=== PATIENT | female | born 1960 | race African-American/Black ===

== ENCOUNTER 2020-09-30 20:08 | Emergency (ER) | payer MEDICAID ==
[~2020-09-30] VITALS: Ht 149.9 cm; Wt 95.0 kg
[~2020-09-30 20:08] MED LIST: ADV50100 IH; ALBU18HF2 IH; ALBU8HFA PO; AMLO5TAB4 PO; FAMO40TA73 PO; NEBU1KIT17; QUET-1 PO; SPIIN INH; [UNRECOGNIZED DRUG - OTHER] PO
[2020-09-30] MEDS ORDERED: ibuprofen tablet 400 MG TABLET PO ONE (21:15)
[2020-09-30] MEDS ORDERED: acetaminophen 325mg tablet PO ONE (21:15)
[2020-09-30 21:50] VITALS: BP 134/60
[2020-10-02] MEDS ORDERED: albumin (Human) 5% 250ml BOTTLE IV ONE (08:00)
[2020-10-02] MEDS ORDERED: MIDAZolam 5mg/ml 2ml vial ONE (08:00)
[2020-10-02] MEDS ORDERED: fentaNYL/PF 50MCG/1 ML 2ML syringe ONE ×3 (08:00→22:58)
[2020-10-02] MEDS ORDERED: MIDAZolam 5mg/5ml vial ONE ×2 (08:00→22:58)
[2020-10-02] MEDS ORDERED: calcium chloride 100 MG/1 ML inj IV ONE ×2 (08:00→23:04)
[2020-10-02] MEDS ORDERED: midazolam 2 mg/2 ml injection ONE (22:23)
[2020-10-02] MEDS ORDERED: rocuronium 10mg/ml inj IV ONE (22:56)
[2020-10-02] MEDS ORDERED: albumin (Human) 5% 250ml 250 ML IV ONE (23:04)
[2020-10-03] MEDS ORDERED: albumin (Human) 5% 250ml 250 ML IV ONE (00:14)
== END 2020-09-30 20:30 | disposition home or self-care (01) ==
LOC: ER 20:09
DX: M25.562 Pain in left knee (principal); R51.9 Headache, unspecified; I10 Essential (primary) hypertension; J44.9 Chronic obstructive pulmonary disease, unspecified; Z56.0 Unemployment, unspecified; Z88.0 Allergy status to penicillin; Z79.899 Other long term (current) drug therapy; X50.9XXA Other and unspecified overexertion or strenuous movements or postures, initial encounter; Y93.89 Activity, other specified; Y92.89 Other specified places as the place of occurrence of the external cause; Y99.8 Other external cause status
CPT/HCPCS: 99281; 99282; 99283